=== PATIENT | female | born 1940 | race Caucasian/White ===

== ENCOUNTER 2016-10-09 20:39 | Inpatient (IN) | payer MEDICARE ==
[~2016-10-09] VITALS: Ht 160 cm; Wt 54.0 kg
[~2016-10-09 20:39] MED LIST: CLON-352 PO; FISH1000 PO; FURO20TA PO; LISI-357 PO; LORT5TAB PO; METO50CR OR; OMEP20TA OR; TRIL135C PO
[2016-10-09 20:49] VITALS: BP 110/63; PULSE 121; RESP 26; TEMP 98.6; O2SAT 93
[2016-10-09] MEDS ORDERED: SODIUM CHLOR 0.9% 1000 ML INJ 1,000 ML IV ONE (21:00)
[2016-10-09] MEDS ORDERED: BUPR100T4 PO (21:20)
[2016-10-09] MEDS ORDERED: HYDR-3535 PO (21:20)
[2016-10-09] MEDS ORDERED: LORA-373 PO (21:20)
[2016-10-09] MEDS ORDERED: METR500T10 PO (21:20)
[2016-10-09] MEDS ORDERED: CHOL1CAP2 PO (21:20)
[2016-10-09] MEDS ORDERED: PROM12.54 PO (21:20)
[2016-10-09] MEDS ORDERED: OMEP20TA PO (21:20)
[2016-10-09] MEDS ORDERED: CYAN1TAB24 PO (21:20)
[2016-10-09] MEDS ORDERED: LISI-519 PO (21:20)
[2016-10-09] MEDS ORDERED: DOXY100C PO (21:20)
[2016-10-09] MEDS ORDERED: METO50TA11 PO (21:20)
[2016-10-09] MEDS ORDERED: FURO20TA PO (21:20)
[2016-10-09 21:35] LABS: AUTOMATED NEUTROPHIL # 14.4 TH/MM3 (1.8-7.7); BASOPHIL # 0.2 TH/MM3 (0-0.2); BASOPHIL % 1.1 % (0.0-2.0); EOSINOPHIL # 0.1 TH/MM3 (0-0.4); EOSINOPHIL % 0.6 % (0.0-4.0); HEMATOCRIT 33.6 % (35.0-46.0); LYMPH % 13.7 % (9.0-44.0); LYMPHOCYTE # 2.5 TH/MM3 (1.0-4.8); MEAN CELL VOLUME 84.1 FL (80.0-100.0); MEAN CORPUSCULAR HEMOGLOBIN 28.8 PG (27.0-34.0); MEAN CORPUSCULAR HGB CONC 34.2 % (32.0-36.0); MONO % 5.6 % (0.0-8.0); PLATELET COUNT 259 TH/MM3 (150-450); RED BLOOD COUNT 3.99 MIL/MM3 (4.00-5.30); RED CELL DISTRIBUTION WIDTH 14.1 % (11.6-17.2); WHITE BLOOD COUNT 18.3 TH/MM3 (4.0-11.0)
--- NOTE | 2016-10-09 21:38 | PD ---
HPI Chief Complaint: Altered Mental Status Time Seen by Provider: 20:46 Travel History International Travel<30 days: No Contact w/Intl Traveler<30days: No Traveled to known affect area: No History of Present Illness HPI 76 year-old woman who presents to the emergency department brought in by her family. She is on hospice reportedly for "C. difficile "after she developed dehydration and required IV fluid hydration at home. Her family states however that she is not terminally ill and that they were told that she can use hospice for more resources at home. Family reports that in August she was really perfectly normal. She would walk independently, and do things on her own. She apparently at some kind of infection in her thumb with lymphangitis, received IV antibiotics, developed C. difficile. Since that time she's had trouble with nausea vomiting diarrhea and has had progressive decline in her functional status. At the beginning of this week, 5 days ago, they saw her primary physician for follow-up and placed her on hospice at that time. She's been getting IV fluids at home since then. Family reports that this morning and yesterday she was doing well, eating independently, and then later this morning when they came back she is been confused, unable to really speak, not moving, with worsening mental status. History Past Medical History Narrative Medical Diabetes Hypertension on hyperlipidemia Arthritis Hiatal hernia Menopausal: Yes Social History Alcohol Use: No Tobacco Use: No Allergies-Medications (Allergen,Severity, Reaction): Coded Allergies: Codeine (Verified Allergy, Severe, STOPS BREATHING, 10/09/16) Morphine (Verified Allergy, Mild, DISORIENTED, 10/09/16) Uncoded Allergies: ADHESIVE TAPE (Allergy, Severe, Rash, 03/27/06) Reported Meds & Prescriptions Reported Meds & Active Scripts Active Reported B12 (Cyanocobalamin) 1,000 Mcg Tab 500 PO DAILY Bupropion HCl 100 Mg Tab 150 Mg PO DAILY Metoprolol Succinate ER 24 HR (Metoprolol Succinate) 50 Mg Tab 50 Mg PO DAILY Doxycycline Hyclate 100 Mg Cap 100 Mg PO BID Furosemide 20 Mg Tab 20 Mg PO DAILY Lorazepam 0.5 Mg Tab 0.5 Mg PO Q2HR PRN Lisinopril 5 Mg Tab 5 Mg PO DAILY Promethazine (Promethazine HCl) 12.5 Mg Tab 25 Mg PO Q6H PRN Metronidazole 500 Mg Tab 500 Mg PO TID Omeprazole 20 Mg Tab 20 Mg PO DAILY Lortab (Hydrocodone-Acetaminophen) 10-325 Mg Tab 1 Tab PO Q6H PRN Fenofibric Acid Dr (Choline Fenofibrate DR) 135 mg Capdr 135 Mg PO DAILY Review of Systems Except as stated in HPI: all other systems reviewed are Neg Physical Exam Narrative GENERAL: Chronically ill-appearing 76 year-old woman, sluggishly responsive. SKIN: Warm and dry. Decreased skin turgor. HEAD: Atraumatic. Normocephalic. EYES: Pupils equal and round. No scleral icterus. No injection or drainage. ENT: No nasal bleeding or discharge. Mucous membranes pink and moist. NECK: Trachea midline. No JVD. CARDIOVASCULAR: Heart rate rapid and irregular. RESPIRATORY: No accessory muscle use. Clear to auscultation. Breath sounds equal bilaterally. GASTROINTESTINAL: Abdomen soft, non-tender, nondistended. Hepatic and splenic margins not palpable. MUSCULOSKELETAL: No obvious deformities. Decreased muscle bulk. NEUROLOGICAL: Awake, eyes open, not really interactive. We will look at you when you call her name. Will speak at times but is difficult to understand. Does not really follow commands. Moves all extremities. No facial asymmetry or obvious focal deficits. Data Data Last Documented VS Vital Signs Date Time Temp Pulse Resp B/P Pulse Ox O2 Delivery O2 Flow Rate FiO2 10/09/16 20:49 98.6 121 26 110/63 93 Room Air Orders Complete Blood Count With Diff (10/09/16 20:46) Comprehensive Metabolic Panel (10/09/16 20:46) Urinalysis - C+S If Indicated (10/09/16 20:46) Iv Access Insert/Monitor (10/09/16 20:46) Sodium Chlor 0.9% 1000 Ml Inj (Ns 1000 M (10/09/16 21:00) Chest, Single Ap (10/09/16 ) Ct Brain W/O Iv Contrast(Rout) (10/09/16 ) Electrocardiogram (10/09/16 ) Urine Culture (10/09/16 21:20) Isolation 20 (10/09/16 21:47) Admit Order (Ed Use Only) (10/09/16 ) Physician Name Changes (10/09/16 ) Labs Laboratory Tests Test 10/09/16 10/09/16 21:14 21:20 White Blood Count 18.3 TH/MM3 Red Blood Count 3.99 MIL/MM3 Hemoglobin 11.5 GM/DL Hematocrit 33.6 % Mean Corpuscular Volume 84.1 FL Mean Corpuscular Hemoglobin 28.8 PG Mean Corpuscular Hemoglobin 34.2 % Concent Red Cell Distribution Width 14.1 % Platelet Count 259 TH/MM3 Mean Platelet Volume 10.9 FL Neutrophils (%) (Auto) 79.0 % Lymphocytes (%) (Auto) 13.7 % Monocytes (%) (Auto) 5.6 % Eosinophils (%) (Auto) 0.6 % Basophils (%) (Auto) 1.1 % Neutrophils # (Auto) 14.4 TH/MM3 Lymphocytes # (Auto) 2.5 TH/MM3 Monocytes # (Auto) 1.0 TH/MM3 Eosinophils # (Auto) 0.1 TH/MM3 Basophils # (Auto) 0.2 TH/MM3 CBC Comment AUTO DIFF Differential Total Cells 100 Counted Neutrophils % (Manual) 88 % Band Neutrophils % 2 % Lymphocytes % 3 % Monocytes % 6 % Eosinophils % 1 % Neutrophils # (Manual) 16.5 TH/MM3 Differential Comment FINAL DIFF MANUAL Platelet Estimate NORMAL Platelet Morphology Comment NORMAL Sodium Level 143 MEQ/L Potassium Level 4.5 MEQ/L Chloride Level 112 MEQ/L Carbon Dioxide Level 17.5 MEQ/L Anion Gap 14 MEQ/L Blood Urea Nitrogen 85 MG/DL Creatinine 3.01 MG/DL Estimat Glomerular Filtration 15 ML/MIN Rate Random Glucose 88 MG/DL Calcium Level 7.1 MG/DL Protein Corrected Calcium 8.1 MG/DL Total Bilirubin 1.0 MG/DL Aspartate Amino Transf 51 U/L (AST/SGOT) Alanine Aminotransferase 29 U/L (ALT/SGPT) Alkaline Phosphatase 147 U/L Total Protein 5.3 GM/DL Albumin 2.5 GM/DL Urine Color YELLOW Urine Turbidity HAZY Urine pH 5.0 Urine Specific [place] 1.015 Urine Protein TRACE mg/dL Urine Glucose (UA) NEG mg/dL Urine Ketones NEG mg/dL Urine Occult Blood MOD Urine Nitrite NEG Urine Bilirubin NEG Urine Urobilinogen LESS THAN 2.0 MG/DL Urine Leukocyte Esterase LARGE Urine RBC 150 /hpf Urine WBC 80 /hpf Urine Squamous Epithelial <1 /hpf Cells Urine Bacteria OCC /hpf Microscopic Urinalysis Comment CATH-CULTURE IND MDM Medical Decision Making Medical Screen Exam Complete: Yes Emergency Medical Condition: Yes Interpretation(s) My review of EKG: A. fib, rate of 127, leftward axis, normal QRS, incomplete right bundle branch block, anterior precordial T-wave inversions and some anterolateral nonspecific ST depressions, no definite evidence of acute ischemia. LABS: CBC remarkable for leukocytosis. CMP remarkable for mildly low bicarbonate, elevated BUN and creatinine, UA with pyuria, hematuria Chest x-ray: Subsegmental airspace disease at the bases most characteristic of atelectasis. CT head: Negative. Differential Diagnosis Dehydration, infection, arrhythmia, electrolyte abnormalities, other Narrative Course Medical decision making INITIAL: 76 year-old woman with persistent dehydration, receiving IV fluids at home, presents with altered mental status, apparent dehydration, with tachycardia and A. fib. We'll check labs, IV fluids, CT head, chest x-ray, reassess. Diagnosis Primary Impression: Altered mental status Qualified Code: R41.0 - Delirium Additional Impressions: Sepsis Qualified Code: A41.9 - Sepsis, due to unspecified organism Dehydration Isaiah Heard MD Oct 09, 2016 21:37
[2016-10-09 21:46] LABS: BACTERIA, URINE OCC /hpf; BLOOD, URINE MOD (NEG); GLUCOSE,URINE NEG (NEG); KETONE, URINE NEG (NEG); NITRITE,URINE NEG (NEG); SQUAMOUS EPITHELIAL CELL URINE <1 /hpf (0-5); URINE COLOR YELLOW (YELLW/STRAW)
[2016-10-09 21:46] LABS: HEMO FLAGS AUTO DIFF
[2016-10-09 21:48] LABS: COMMENT (UR) CATH-CULTURE IND; CULTURE IF INDICATED CATH CULTURE IND
--- NOTE | 2016-10-09 22:09 | RADRPT ---
EXAM DATE/TIME: 10/09/2016 21:40 [facility] COMPARISON: No previous studies available for comparison. INDICATIONS : Altered mental status RADIATION DOSE: 69.15 CTDIvol (mGy) MEDICAL HISTORY : Hypertension. SURGICAL HISTORY : None. ENCOUNTER: Initial ACUITY: 1 day PAIN SCALE: Non-responsive LOCATION: Bilateral cranial TECHNIQUE: Multiple contiguous axial images were obtained of the head. Using automated exposure control and adj ustment of the mA and/or kV according to patient size, radiation dose was kept as low as reasonably a chievable to obtain optimal diagnostic quality images. FINDINGS: CEREBRUM: The ventricles are normal for age. No evidence of midline shift, mass lesion, hemorrhage or acute in farction. No extra-axial fluid collections are seen. POSTERIOR FOSSA: The cerebellum and brainstem are intact. The 4th ventricle is midline. The cerebellopontine angle i s unremarkable. EXTRACRANIAL: The visualized portion of the orbits is intact. SKULL: The calvaria is intact. No evidence of skull fracture. CONCLUSION: 1. No acute findings. Chronic white matter ischemic changes. Daniel Rob MD on October 09, 2016 at 22:06 Board Certified Radiologist. This report was verified electronically.
[2016-10-09 22:18] LABS: BANDS 2 % (0-6); EOSINOPHILS 1 % (0-4); NEUTROPHIL # MANUAL DIFF 16.5 TH/MM3 (1.8-7.7); POLYS (SEG NEUTROPHILS) 88 % (16-70); WBC DIFF SAMPLE 100
[2016-10-09 22:19] LABS: PLATELET ESTIMATE SMEAR NORMAL (NORMAL); PLATELET MORPHOLOGY NORMAL (NORMAL); SCAN/DIFF FINAL DIFF MANUAL
[2016-10-09 22:20] LABS: BICARBONATE 17.5 MEQ/L (21.0-32.0); CALCIUM-PROTEIN CORRECTED 8.1 MG/DL (8.5-10.1)
--- NOTE | 2016-10-09 22:31 | RADRPT ---
EXAM DATE/TIME: 10/09/2016 20:10 [facility] COMPARISON: No previous studies available for comparison. INDICATIONS : Short of breath. MEDICAL HISTORY : Chronic obstructive pulmonary disease. SURGICAL HISTORY : None. ENCOUNTER: Initial ACUITY: 1 day PAIN SCORE: 0/10 LOCATION: Bilateral chest FINDINGS: A single view of the chest demonstrates subsegmental airspace disease at the lung bases. No effusion. No pneumothorax. Previous right shoulder joint replacement. CONCLUSION: 1. Subsegmental airspace disease at the bases most characteristic of atelectasis. Film is rotated in position. Previous right shoulder replacement. Daniel Rob MD on October 09, 2016 at 22:28 Board Certified Radiologist. This report was verified electronically.
[2016-10-09 23:03] LABS: POTASSIUM 4.5 MEQ/L (3.5-5.1)
[2016-10-10] VITALS (7 sets, daily range): BP systolic 119–154; BP diastolic 53–87; PULSE 71–127; RESP 18–24; TEMP 97.6; O2SAT 84–99
[2016-10-10] MEDS ORDERED: PROMETHAZINE HCL 25 MG TAB PO PRN (00:15)
[2016-10-10] MEDS ORDERED: LORazepam 0.5 MG TAB PO PRN (00:15)
--- NOTE | 2016-10-10 00:38 | HHI.HP ---
HPI Service [facility] Hospitalists Primary Care Physician Unknown Admission Diagnosis altered mental status, dehydration Chief Complaint: 1 day altered mental status ,recent uti Travel History International Travel<30 Days: No Contact w/Intl Traveler <30 Da: No Traveled to Known Affected Are: No Sepsis Criteria SIRS Criteria (2 or more): Heart rate over 90, WBC > 92144, < 4000 or > 10% bands History of Present Illness HPI 76 year-old woman who presents to the emergency department brought in by her family. She is on hospice reportedly for "C. difficile "after she developed dehydration and required IV fluid hydration at home. Her family states however that she is not terminally ill and that they were told that she can use hospice for more resources at home. Family reports that in August she was really perfectly normal. She would walk independently, and do things on her own. She had fall and had operation to shoulder developed some kind of infection in her thumb with lymphangitis, received IV antibiotics, developed C. difficile. Since that time she's had trouble with nausea vomiting diarrhea and has had progressive decline in her functional status. At the beginning of this week, 5 days ago, they saw her primary physician for follow-up and placed her on hospice at that time. She's been getting IV fluids at home since then and was on medication for UTI Family reports that this morning and yesterday she was doing well, eating independently, and then later this morning when they came back she is been confused, unable to really speak, not moving, with worsening mental status. In er found to have sirs criteria with elevated heart rate and WBC count and urine infection with renal failure with cr at 3 unknown baseline . Patient appears to be atrial fib as well with ventricular response of 120, not sure if new or old. Review of Systems ROS Limitations: Altered Mental Status Past Family Social History Past Medical History hypertension,hyperlipidemia chronic arthritis pain with chronic back pain,GERD, C Diff times two,recent lymphangitis infection arm rt,anxiety depression Past Surgical History shoulder surgery fx Reported Medications lopressor 50,buproprion,b12.doxy,lasix 20,lorazepam lisinopril hydrocodone fibrate flagyl Allergies: Coded Allergies: Codeine (Verified Allergy, Severe, STOPS BREATHING, 10/09/16) Morphine (Verified Allergy, Mild, DISORIENTED, 10/09/16) Uncoded Allergies: ADHESIVE TAPE (Allergy, Severe, Rash, 03/27/06) Social History NS,ND Physical Exam Vital Signs Vital Signs Date Time Temp Pulse Resp B/P Pulse Ox O2 Delivery O2 Flow Rate FiO2 10/09/16 20:49 98.6 121 26 110/63 93 Room Air Physical Exam GENERAL: This is a well-nourished, well-developed patient, in no apparent distress. SKIN: No rashes, ecchymoses or lesions. Cool and dry. HEAD: Atraumatic. Normocephalic. No temporal or scalp tenderness. EYES: Pupils equal round and reactive. Extraocular motions intact. No scleral icterus. No injection or drainage. ENT: Nose without bleeding, purulent drainage or septal hematoma. Throat without erythema, tonsillar hypertrophy or exudate. Uvula midline. Airway patent. NECK: Trachea midline. No JVD or lymphadenopathy. Supple, nontender, no meningeal signs. CARDIOVASCULAR: Regular rate and rhythm without murmurs, gallops, or rubs. RESPIRATORY: Clear to auscultation. Breath sounds equal bilaterally. No wheezes , rales, or rhonchi. GASTROINTESTINAL: Abdomen soft, non-tender, nondistended. No hepato-splenomegaly , or palpable masses. No guarding. MUSCULOSKELETAL: Extremities without clubbing, cyanosis, or edema. No joint tenderness, effusion, or edema noted. No calf tenderness. Negative Homans sign bilaterally. NEUROLOGICAL: Awake and alert but confused able to respond to questions accurately. Cranial nerves II through XII intact. Motor and sensory grossly within normal limits. Five out of 5 muscle strength in all muscle groups. garbled speech. Laboratory Laboratory Tests Test 10/09/16 10/09/16 21:14 21:20 White Blood Count 18.3 Red Blood Count 3.99 Hemoglobin 11.5 Hematocrit 33.6 Mean Corpuscular Volume 84.1 Mean Corpuscular Hemoglobin 28.8 Mean Corpuscular Hemoglobin 34.2 Concent Red Cell Distribution Width 14.1 Platelet Count 259 Mean Platelet Volume 10.9 Neutrophils (%) (Auto) 79.0 Lymphocytes (%) (Auto) 13.7 Monocytes (%) (Auto) 5.6 Eosinophils (%) (Auto) 0.6 Basophils (%) (Auto) 1.1 Neutrophils # (Auto) 14.4 Lymphocytes # (Auto) 2.5 Monocytes # (Auto) 1.0 Eosinophils # (Auto) 0.1 Basophils # (Auto) 0.2 CBC Comment AUTO DIFF Differential Total Cells 100 Counted Neutrophils % (Manual) 88 Band Neutrophils % 2 Lymphocytes % 3 Monocytes % 6 Eosinophils % 1 Neutrophils # (Manual) 16.5 Differential Comment FINAL DIFF MANUAL Platelet Estimate NORMAL Platelet Morphology Comment NORMAL Sodium Level 143 Potassium Level 4.5 Chloride Level 112 Carbon Dioxide Level 17.5 Anion Gap 14 Blood Urea Nitrogen 85 Creatinine 3.01 Estimat Glomerular Filtration 15 Rate Random Glucose 88 Calcium Level 7.1 Protein Corrected Calcium 8.1 Total Bilirubin 1.0 Aspartate Amino Transf 51 (AST/SGOT) Alanine Aminotransferase 29 (ALT/SGPT) Alkaline Phosphatase 147 Total Protein 5.3 Albumin 2.5 Urine Color YELLOW Urine Turbidity HAZY Urine pH 5.0 Urine Specific [place] 1.015 Urine Protein TRACE Urine Glucose (UA) NEG Urine Ketones NEG Urine Occult Blood MOD Urine Nitrite NEG Urine Bilirubin NEG Urine Urobilinogen LESS THAN 2.0 Urine Leukocyte Esterase LARGE Urine RBC 150 Urine WBC 80 Urine Squamous Epithelial <1 Cells Urine Bacteria OCC Microscopic Urinalysis Comment CATH-CULTURE IND Date/Time Procedure Status Source Growth 10/09/16 21:20 Urine Culture Received Urine Catheterized Urine Pending Result Diagram: 10/09/16211310/09/162113 Imaging chest xray and CT head no acute findings Course in er started on IV fluids and will start antibiotics ,maxipem blood culture stool, for c diff Assessment and Plan Problem List: (1) Altered mental status Status: Acute Plan: approx 1 day duration seems like patient has had decline for several weeks Labs consistent with sepsis will get blood culture start Maxipim (2) Sepsis Status: Acute Plan: as above likely from urine (3) Renal failure Status: Acute Plan: probably component of dehydration hydrate and recheck labs if no real change in labs will need renal evaluation (4) Dehydration Status: Acute Plan: as above hydrate recheck labs (5) UTI (urinary tract infection) Status: Chronic Plan: has indwelling dooley and has been on outpatient antibiotics,dooley reason may be for incontinence Assessment and Plan further plan as case progresses and on recheck of labs will continue patient pain med has been on hydrocodone for a long time ,will hold lisinopril in view of renal failure and will get c diff check Code Status full Discussed Condition With family Physician Certification 2 Midnight Certification Type: Admission for Inpatient Services Order for Inpatient Services The services are ordered in accordance with Medicare regulations or non- Medicare payer requirements, as applicable. In the case of services not specified as inpatient-only, they are appropriately provided as inpatient services in accordance with the 2-midnight benchmark. Estimated LOS (days): 3 3 days is the estimated time the patient will need to remain in the hospital, assuming treatment plan goals are met and no additional complications. Post-Hospital Plan: Not yet determined Problem Qualifiers (1) Altered mental status: Qualified Code: R41.0 - Delirium (2) Sepsis: Qualified Code: A41.9 - Sepsis, due to unspecified organism Nba Bernardo MD Oct 10, 2016 00:38
[2016-10-10] MEDS ORDERED: NALOXONE HCL 0.4 MG/ML AMP IV PRN (00:45)
[2016-10-10] MEDS ORDERED: CEFEPIME INJ 1,000 MG in SODIUM CHLORIDE 0.9% INJ 100 ML IV SCH (00:45)
[2016-10-10] MEDS ORDERED: SODIUM CHLORIDE 0.9% FLUSH 5 ML FLUSH FLUSH PRN (00:45)
[2016-10-10] MEDS: CEFEPIME 2000 MG/NS 100 ML IV SCH ×2 (02:20)
[2016-10-10] MEDS: SODIUM CHLOR 0.9% 1000 ML INJ 1,000 ML IV SCH ×2 (02:20→11:47)
[2016-10-10] MEDS: ACETAMINOPHEN/HYDROcodone 325 MG/10 MG TAB PO PRN ×3 (04:31→23:22)
[2016-10-10] MEDS: PANTOPRAZOLE SOD 20 MG DELAYED RELEASE TAB PO SCH (08:08)
[2016-10-10] MEDS: SODIUM CHLORIDE 0.9% FLUSH 5 ML FLUSH FLUSH SCH ×2 (08:08→20:50)
[2016-10-10] MEDS ORDERED: LISINOPRIL 5 MG TAB PO SCH (09:00)
[2016-10-10] MEDS ORDERED: METOPROLOL SUCCINATE 50 MG EXTENDED RELEASE TAB PO SCH (09:00)
[2016-10-10] MEDS ORDERED: buPROPion HCL 150 MG SUSTAINED RELEASE TAB PO SCH (09:00)
[2016-10-10 09:43] LABS: AUTOMATED NEUTROPHIL # 11.2 TH/MM3 (1.8-7.7); BASOPHIL # 0.1 TH/MM3 (0-0.2); BASOPHIL % 0.3 % (0.0-2.0); EOSINOPHIL # 0.2 TH/MM3 (0-0.4); EOSINOPHIL % 1.2 % (0.0-4.0); HEMATOCRIT 32.3 % (35.0-46.0); HEMO FLAGS DIFF FINAL; LYMPH % 16.1 % (9.0-44.0); LYMPHOCYTE # 2.3 TH/MM3 (1.0-4.8); MEAN CELL VOLUME 86.4 FL (80.0-100.0); MEAN CORPUSCULAR HEMOGLOBIN 28.5 PG (27.0-34.0); MONO % 5.2 % (0.0-8.0); NEUT % 77.2 % (16.0-70.0); PLATELET COUNT 179 TH/MM3 (150-450); RED BLOOD COUNT 3.73 MIL/MM3 (4.00-5.30); RED CELL DISTRIBUTION WIDTH 14.4 % (11.6-17.2); WHITE BLOOD COUNT 14.5 TH/MM3 (4.0-11.0)
[2016-10-10 10:16] LABS: BICARBONATE 18.7 MEQ/L (21.0-32.0); CALCIUM-PROTEIN CORRECTED 7.5 MG/DL (8.5-10.1); TOTAL BILIRUBIN ADULT 0.9 MG/DL (0.2-1.0)
[2016-10-10 10:17] LABS: POTASSIUM 3.8 MEQ/L (3.5-5.1)
--- NOTE | 2016-10-10 10:26 | HHI.PR ---
Subjective Remarks Pts daughter is present and provides history as the pt is rather altered. Pts daughter states that back in 07/2016 the pt fell and fractured her right scapula and was placed in a sling The pt then developed a paronychia with reported lymphangitis and red streaking uo the right arm and was placed on IV antibiotics for 4 days while hospitalized at [facility] in early August 2016 Pt was reportedly on several rounds of antibiotics in August for this and then developed nausea/vomiting and diarrhea. She was seen by her PCP, Dr. Villalpando, on 10/01/16 and prescribed Flagyl TID x 14 days for presumed C. diff infection as the pt had previously had a C. diff infection last year. Pts daughter does not think that the pt was taking it as prescribed as currently she still has 31 pills left in that bottle of Flagyl which she brought to the hospital. The pt has not been eating or drinking well. Her diarrhea and vomiting reportedly subsided over the last 2-3 days. The pts last BM was two days ago and was reportedly pastey stool. The pts daughter states that the pt was reportedly recently found to have a UTI 6 days ago at an urgent care She was seen by her PCP 5 days ago and was placed on Hospice care with [facility] to help the pt and family get more help in the home as the pt had generally declined over the last 2 months Pt had a Alvarez catheter placed 3 days ago and the pts daughter states that the pt has not been out of bed in 5 days. Then yesterday evening the pts daughter went out to run errands and when she came home the pt was acutely confused and disoriented which was a significant change from her baseline mental status. Pt was found to have acute on chronic renal insufficiency, dehydration, and leukocytosis and was admitted for possible sepsis with AMS. Pt also noted to be in A. fib RVR at admission which is not a diagnosis that the daughter is aware of. Today pt is still quite altered Pt complains of pain in her mouth and has noted oral thrush. Objective Vitals Vital Signs Date Time Temp Pulse Resp B/P Pulse Ox O2 Delivery O2 Flow Rate FiO2 10/10/16 07:55 97.6 108 18 154/87 84 10/10/16 03:10 106 24 121/71 97 Room Air 10/09/16 20:49 98.6 121 26 110/63 93 Room Air Result Diagram: 10/10/16 0853 10/09/16 2114 Other Results Laboratory Tests Test 10/09/16 10/09/16 10/10/16 21:14 21:20 08:53 White Blood Count 18.3 TH/MM3 14.5 TH/MM3 Red Blood Count 3.99 MIL/MM3 3.73 MIL/MM3 Hemoglobin 11.5 GM/DL 10.6 GM/DL Hematocrit 33.6 % 32.3 % Mean Corpuscular Volume 84.1 FL 86.4 FL Mean Corpuscular Hemoglobin 28.8 PG 28.5 PG Mean Corpuscular Hemoglobin 34.2 % 33.0 % Concent Red Cell Distribution Width 14.1 % 14.4 % Platelet Count 259 TH/MM3 179 TH/MM3 Mean Platelet Volume 10.9 FL 10.3 FL Neutrophils (%) (Auto) 79.0 % 77.2 % Lymphocytes (%) (Auto) 13.7 % 16.1 % Monocytes (%) (Auto) 5.6 % 5.2 % Eosinophils (%) (Auto) 0.6 % 1.2 % Basophils (%) (Auto) 1.1 % 0.3 % Neutrophils # (Auto) 14.4 TH/MM3 11.2 TH/MM3 Lymphocytes # (Auto) 2.5 TH/MM3 2.3 TH/MM3 Monocytes # (Auto) 1.0 TH/MM3 0.8 TH/MM3 Eosinophils # (Auto) 0.1 TH/MM3 0.2 TH/MM3 Basophils # (Auto) 0.2 TH/MM3 0.1 TH/MM3 CBC Comment AUTO DIFF DIFF FINAL Differential Total Cells 100 Counted Neutrophils % (Manual) 88 % Band Neutrophils % 2 % Lymphocytes % 3 % Monocytes % 6 % Eosinophils % 1 % Neutrophils # (Manual) 16.5 TH/MM3 Differential Comment FINAL DIFF MANUAL Platelet Estimate NORMAL Platelet Morphology Comment NORMAL Sodium Level 143 MEQ/L Potassium Level 4.5 MEQ/L Chloride Level 112 MEQ/L Carbon Dioxide Level 17.5 MEQ/L Anion Gap 14 MEQ/L Blood Urea Nitrogen 85 MG/DL Creatinine 3.01 MG/DL Estimat Glomerular Filtration 15 ML/MIN Rate Random Glucose 88 MG/DL Calcium Level 7.1 MG/DL Protein Corrected Calcium 8.1 MG/DL Total Bilirubin 1.0 MG/DL Aspartate Amino Transf 51 U/L (AST/SGOT) Alanine Aminotransferase 29 U/L (ALT/SGPT) Alkaline Phosphatase 147 U/L Total Protein 5.3 GM/DL Albumin 2.5 GM/DL Urine Color YELLOW Urine Turbidity HAZY Urine pH 5.0 Urine Specific [place] 1.015 Urine Protein TRACE mg/dL Urine Glucose (UA) NEG mg/dL Urine Ketones NEG mg/dL Urine Occult Blood MOD Urine Nitrite NEG Urine Bilirubin NEG Urine Urobilinogen LESS THAN 2.0 MG/DL Urine Leukocyte Esterase LARGE Urine RBC 150 /hpf Urine WBC 80 /hpf Urine Squamous Epithelial <1 /hpf Cells Urine Bacteria OCC /hpf Microscopic Urinalysis Comment CATH-CULTURE IND Imaging Last Impressions Head CT 10/09/16 0000 Signed Impressions: Service Date/Time: October 21:40 - CONCLUSION: 1. No acute findings. Chronic white matter ischemic changes. Daniel Rob MD Chest X-Ray 10/09/16 0000 Signed Impressions: Service Date/Time: October 20:10 - CONCLUSION: 1. Subsegmental airspace disease at the bases most characteristic of atelectasis. Film is rotated in position. Previous right shoulder replacement. Daniel Rob MD Objective Remarks General: NAD, confused, agitated at times ENT: Oral thrush noted Chest: CTA Cardiac: Tachy, irregular Abd: +BS, soft ND/NT Ext: No edema A/P Problem List: (1) Altered mental status Status: Acute Plan: - May be multifactorial related to dehydration, acute on chronic renal insufficiency and possible sepsis with a possible UTI and previously suspected C. difficile infection. - Pt has been afebrile since admission and no reported outpt fevers - WBC count was 18 at admission - Pt started on Cefepime - Blood cultures are pending - Urine culture is pending. - IVF - Encourage oral intake, no swallowing concerns per family and nursing staff. - Pt had a Alvarez cath placed a few days ago, remove this. - PT evaluation - Stool for C. diff are ordered but pt has not had a BM in 2 days. - Pt admitted with reported A. fib RVR, HR in the 120-130 - Upon our review of her EKGs is appears that she had sinus tach with PACs/PVCs , pt currently in a sinus rhythm on exam - Pt is on Toprol XL 50mg po daily, continue - Telemetry - Monitor labs - Supportive care - DVT prophylaxis with Heparin (2) Sepsis Status: Acute Plan: - See above. (3) Renal failure Status: Acute Plan: - See above. - Awaiting repeat labs for today (4) Dehydration Status: Acute Plan: - See above (5) UTI (urinary tract infection) Status: Chronic Plan: - See above. (6) Diabetes mellitus type 2, diet-controlled Status: Chronic Plan: - Pt is normally diet controlled. - Repeat labs with a glucose of 69 this morning - Accu checks - Change IVF to D5 NS - Monitor (7) HTN (hypertension) Status: Chronic Assessment and Plan Patient examined. Assessment and plan formulated with Graciela Walters PA-C. I agree with the above. jesus. dehydration. uti. reevaluate for c.diff. encephalopathic and psychotic behavior my review of ekg shows more sinus tach with pac/pvc's. not afib. but will monitor. if symtoms persists after metabolic correction then consider mri brain to exclude cva. updated family. Problem Qualifiers (1) Altered mental status: Qualified Code: R41.0 - Delirium (2) Sepsis: Qualified Code: A41.9 - Sepsis, due to unspecified organism Graciela Walters Oct 10, 2016 10:26 Anil Negro MD Oct 10, 2016 12:30
[2016-10-10] MEDS: HEPARIN SODIUM - SQ 10,000 UNITS/ML VIAL SQ SCH ×2 (11:41→23:22)
[2016-10-10] MEDS: NYSTATIN SUSP 500,000 U/5 ML CUP SWISH-SWAL SCH ×4 (11:41→20:49)
[2016-10-10] MEDS ORDERED: HALOPERIDOL LACTATE 5 MG/ML AMP IV ONE (12:15)
[2016-10-10] MEDS: DEXT 5%-NACL 0.9% 1000 ML INJ 1,000 ML IV SCH (13:40)
[2016-10-10] MEDS: INSULIN ASPART SUPPLEMENTAL SCALE SQ SCH ×2 (16:00→20:50)
--- NOTE | 2016-10-10 16:10 | EKG ---
Date Performed: 10/09/2016 Time Performed: 21:32:57 PTAGE: 76 years EKG: ATRIAL FIBRILLATION WITH RAPID VENTRICULAR RESPONSE WITH ABERRANT CONDUCTION OR VENTRICULAR PREMATURE COMPLEXES LOW QRS VOLTAGE IN PRECORDIAL LEADS PATTERN CONSISTENT WITH PULMONARY DISEASE IN COMPLETE RIGHT BUNDLE BRANCH BLOCK LEFT ANTERIOR FASCICULAR BLOCK MODERATE ST DEPRESSION When compare d to previous tracing, the atrial fibrillation is new. Heart rate is now faster. ABNORMAL ECG PREVIOUS TRACING : 11/29/2010 10.27 DOCTOR: Anil Talavera Interpretating Date/Time 10/10/2016 16:08:47
--- NOTE | 2016-10-10 16:12 | EKG ---
Date Performed: 10/10/2016 Time Performed: 08:18:32 PTAGE: 76 years EKG: SINUS TACHYCARDIA WITH OCCASIONAL SUPRAVENTRICULAR PREMATURE COMPLEXES INCOMPLETE RIGHT BUN DLE BRANCH BLOCK LEFT ANTERIOR FASCICULAR BLOCK MODERATE ST DEPRESSION When compared to previous trac ing, rhythm has changed from Atrial fibrillation to Sinus rhythm . Heart rate is still rapid. ABNORMAL ECG PREVIOUS TRACING : 10/09/2016 21.32 DOCTOR: Anil Talavera Interpretating Date/Time 10/10/2016 16:10:50
[2016-10-10] MEDS ORDERED: HALOPERIDOL LACTATE 5 MG/ML AMP IV PRN (16:30)
[2016-10-10] MEDS: LORazepam 2 MG/ML VIAL IV PUSH PRN (18:00)
[2016-10-10] MEDS ORDERED: METOPROLOL TARTRATE 50 MG TAB PO SCH (21:00)
[2016-10-11] VITALS (7 sets, daily range): BP systolic 113–129; BP diastolic 57–77; PULSE 86–113; RESP 19–20; TEMP 95.6–98.7; O2SAT 95–98
[2016-10-11] MEDS: LORazepam 2 MG/ML VIAL IV PUSH PRN ×3 (01:24→15:21)
[2016-10-11] MEDS: DEXT 5%-NACL 0.9% 1000 ML INJ 1,000 ML IV SCH (01:24)
[2016-10-11] MEDS: CEFEPIME 2000 MG/NS 100 ML IV SCH ×4 (01:24→23:36)
[2016-10-11] MEDS: ACETAMINOPHEN/HYDROcodone 325 MG/10 MG TAB PO PRN ×2 (05:38→16:01)
[2016-10-11] MEDS: INSULIN ASPART SUPPLEMENTAL SCALE SQ SCH ×4 (06:07→21:00)
[2016-10-11 06:45] LABS: BASOPHIL # 0.1 TH/MM3 (0-0.2); BASOPHIL % 0.5 % (0.0-2.0); EOSINOPHIL # 0.5 TH/MM3 (0-0.4); EOSINOPHIL % 3.2 % (0.0-4.0); HEMATOCRIT 32.9 % (35.0-46.0); HEMO FLAGS DIFF FINAL; LYMPH % 21.1 % (9.0-44.0); MEAN CELL VOLUME 85.1 FL (80.0-100.0); MEAN CORPUSCULAR HEMOGLOBIN 28.7 PG (27.0-34.0); MEAN CORPUSCULAR HGB CONC 33.7 % (32.0-36.0); MONO % 5.9 % (0.0-8.0); NEUT % 69.3 % (16.0-70.0); PLATELET COUNT 201 TH/MM3 (150-450); RED BLOOD COUNT 3.87 MIL/MM3 (4.00-5.30); RED CELL DISTRIBUTION WIDTH 14.1 % (11.6-17.2); WHITE BLOOD COUNT 14.4 TH/MM3 (4.0-11.0)
[2016-10-11 07:19] LABS: BICARBONATE 16.5 MEQ/L (21.0-32.0); POTASSIUM 3.7 MEQ/L (3.5-5.1)
[2016-10-11 07:38] LABS: CALCIUM-PROTEIN CORRECTED 7.8 MG/DL (8.5-10.1)
[2016-10-11] MEDS ORDERED: DEXT 5%-NACL 0.45% 1000 ML INJ 1,000 ML IV SCH (07:45)
[2016-10-11] MEDS: MAGNESIUM SULFATE 1 GM PREMIX 100 ML IV SCH ×3 (08:13→11:22)
[2016-10-11] MEDS: METOPROLOL SUCCINATE 50 MG EXTENDED RELEASE TAB PO SCH (09:25)
[2016-10-11] MEDS: SODIUM CHLORIDE 0.9% FLUSH 5 ML FLUSH FLUSH SCH ×2 (09:25→21:14)
[2016-10-11] MEDS: NYSTATIN SUSP 500,000 U/5 ML CUP SWISH-SWAL SCH ×4 (09:25→21:14)
[2016-10-11] MEDS: CALCIUM CARBONATE 1.25 GM (CA 500 MG) TAB PO SCH ×2 (09:25→21:14)
[2016-10-11] MEDS: PANTOPRAZOLE SOD 20 MG DELAYED RELEASE TAB PO SCH (09:25)
[2016-10-11] MEDS: HEPARIN SODIUM - SQ 10,000 UNITS/ML VIAL SQ SCH ×2 (11:22→23:35)
[2016-10-11 12:24] LABS: C. DIFF EPI 027 PRESUMPTIVE NEGATIVE (NEGATIVE); C. DIFF TOXIN PCR NEGATIVE (NEGATIVE)
[2016-10-11] MEDS ORDERED: HALOPERIDOL LACTATE 5 MG/ML AMP IV PRN (15:00)
[2016-10-11] MEDS: DEXT 5%-NACL 0.45% 1000 ML INJ 1,000 ML IV SCH ×2 (15:21→21:55)
[2016-10-11 17:08] LABS: BLOOD, URINE SMALL (NEG); GLUCOSE,URINE NEG (NEG); KETONE, URINE NEG (NEG); MUCUS URINE FEW /lpf (OCC); NITRITE,URINE NEG (NEG); PH, URINE 5.5 (5.0-8.5); URINE COLOR YELLOW (YELLW/STRAW)
[2016-10-11 17:12] LABS: COMMENT (UR) CATH-CULT NOT IND; CULTURE IF INDICATED CATH CULTURE NOT IND
--- NOTE | 2016-10-11 18:07 | HHI.PR ---
Subjective Remarks agitated. confused. family present. Objective Vitals confused heart reg lung cta abds bladder fullness ext no edema Vital Signs Date Time Temp Pulse Resp B/P Pulse Ox O2 Delivery O2 Flow Rate FiO2 10/11/16 16:00 96.7 95 20 113/57 96 10/11/16 12:00 96.5 96 20 125/59 95 10/11/16 08:03 100 10/11/16 08:00 95.6 113 20 129/73 96 10/11/16 02:40 104 10/11/16 01:18 98.7 87 19 128/77 98 Result Diagram: 10/11/16 0558 10/11/16 0558 Imaging Last Impressions Head CT 10/09/16 0000 Signed Impressions: Service Date/Time: October 21:40 - CONCLUSION: 1. No acute findings. Chronic white matter ischemic changes. Daniel Rob MD Chest X-Ray 10/09/16 0000 Signed Impressions: Service Date/Time: October 20:10 - CONCLUSION: 1. Subsegmental airspace disease at the bases most characteristic of atelectasis. Film is rotated in position. Previous right shoulder replacement. Daniel Rob MD A/P Problem List: (1) Altered mental status Status: Acute Plan: - May be multifactorial related to dehydration, acute on chronic renal insufficiencyl. also would be concern for acute cva given afib on presentation. - Pt has been afebrile since admission and no reported outpt fevers - WBC count was 18 at admission - Pt started on Cefepime - Blood cultures are ngtd - Urine culture ngtd - stool neg for c.diff cont ivf to improve jesus and hypernatremia cont prn ativan and haldol replace dooley for urine retention discussed possible cva with family. unable to get mri at this time. cont supportive care awaiting transfer to med/surg bed. (2) Renal failure Status: Acute Plan: - See above. (3) Dehydration Status: Acute Plan: - See above (4) Diabetes mellitus type 2, diet-controlled Status: Chronic Plan: - Pt is normally diet controlled. (5) HTN (hypertension) Status: Chronic Problem Qualifiers (1) Altered mental status: Qualified Code: R41.0 - Delirium Anil Negro MD Oct 11, 2016 18:07
[2016-10-12] VITALS (8 sets, daily range): BP systolic 110–122; BP diastolic 51–93; PULSE 84–96; RESP 16–22; TEMP 97.2–98.5; O2SAT 94–98
[2016-10-12] MEDS: ACETAMINOPHEN/HYDROcodone 325 MG/10 MG TAB PO PRN ×2 (04:26→14:23)
[2016-10-12] MEDS: LORazepam 2 MG/ML VIAL IV PUSH PRN ×3 (04:26→19:39)
[2016-10-12] MEDS: INSULIN ASPART SUPPLEMENTAL SCALE SQ SCH ×4 (06:55→20:11)
[2016-10-12] MEDS: NYSTATIN SUSP 500,000 U/5 ML CUP SWISH-SWAL SCH ×4 (09:10→19:39)
[2016-10-12] MEDS: METOPROLOL SUCCINATE 50 MG EXTENDED RELEASE TAB PO SCH (09:10)
[2016-10-12] MEDS: CALCIUM CARBONATE 1.25 GM (CA 500 MG) TAB PO SCH ×2 (09:10→19:40)
[2016-10-12] MEDS: SODIUM CHLORIDE 0.9% FLUSH 5 ML FLUSH FLUSH SCH ×2 (09:10→19:40)
[2016-10-12] MEDS: PANTOPRAZOLE SOD 20 MG DELAYED RELEASE TAB PO SCH (09:10)
[2016-10-12 10:26] LABS: AUTOMATED NEUTROPHIL # 10.5 TH/MM3 (1.8-7.7); BASOPHIL % 0.3 % (0.0-2.0); EOSINOPHIL # 0.5 TH/MM3 (0-0.4); EOSINOPHIL % 3.7 % (0.0-4.0); HEMATOCRIT 35.1 % (35.0-46.0); HEMO FLAGS DIFF FINAL; LYMPH % 14.6 % (9.0-44.0); MEAN CELL VOLUME 86.3 FL (80.0-100.0); MEAN CORPUSCULAR HEMOGLOBIN 28.6 PG (27.0-34.0); MEAN CORPUSCULAR HGB CONC 33.2 % (32.0-36.0); MONO % 5.7 % (0.0-8.0); NEUT % 75.7 % (16.0-70.0); PLATELET COUNT 203 TH/MM3 (150-450); RED BLOOD COUNT 4.07 MIL/MM3 (4.00-5.30); RED CELL DISTRIBUTION WIDTH 14.6 % (11.6-17.2); WHITE BLOOD COUNT 13.9 TH/MM3 (4.0-11.0)
[2016-10-12 10:46] LABS: BICARBONATE 20.2 MEQ/L (21.0-32.0); POTASSIUM 3.7 MEQ/L (3.5-5.1)
[2016-10-12] MEDS: DEXT 5%-NACL 0.45% 1000 ML INJ 1,000 ML IV SCH ×3 (11:20→23:14)
[2016-10-12] MEDS: HEPARIN SODIUM - SQ 10,000 UNITS/ML VIAL SQ SCH ×2 (11:20→23:13)
--- NOTE | 2016-10-12 14:31 | HHI.PR ---
Subjective Remarks pt now talking and much more oriented. family present and agree she is improving. Objective Vitals follows commands oriented currently not agitated heart reg lung cta abd s/nt/nabs ext no edema ?mild left cheek drooping. Vital Signs Date Time Temp Pulse Resp B/P Pulse Ox O2 Delivery O2 Flow Rate FiO2 10/12/16 12:21 97.2 94 22 122/93 97 10/12/16 08:33 84 10/12/16 07:46 97.4 88 20 121/67 94 10/12/16 04:46 97.9 90 16 110/51 10/11/16 20:00 86 10/11/16 16:00 96.7 95 20 113/57 96 10/11/16 10/11/16 10/12/16 15:00 23:00 07:00 Intake Total 1340 ml Output Total 950 ml 1000 ml Balance -950 ml 340 ml Intake Oral 240 ml IV Total 1100 ml Output Urine Total 950 ml 1000 ml Result Diagram: 10/12/16 1001 10/12/16 1001 Imaging Last Impressions Head CT 10/09/16 0000 Signed Impressions: Service Date/Time: October 21:40 - CONCLUSION: 1. No acute findings. Chronic white matter ischemic changes. Daniel Rob MD Chest X-Ray 10/09/16 0000 Signed Impressions: Service Date/Time: October 20:10 - CONCLUSION: 1. Subsegmental airspace disease at the bases most characteristic of atelectasis. Film is rotated in position. Previous right shoulder replacement. Daniel Rob MD A/P Problem List: (1) Altered mental status Status: Acute Plan: - May be multifactorial related to dehydration, acute on chronic renal insufficiency. also would be concern for acute cva given afib on presentation. - Pt has been afebrile since admission and no reported outpt fevers - WBC count was 18 at admission - Pt started on Cefepime - Blood cultures are ngtd - Urine culture ngtd - stool neg for c.diff ---Today she is more oriented. follows commands and family agrees. She may need mri prior to d/c to r/o cva. cont ivf but lower rate. recheck bmp cont prn ativan and haldol dooley for urine retention discussed possible cva with family. cont supportive care awaiting transfer to med/surg bed. PT dvt prophylaxis (2) Renal failure Status: Acute Plan: - See above. (3) Dehydration Status: Acute Plan: - See above (4) Diabetes mellitus type 2, diet-controlled Status: Chronic Plan: - Pt is normally diet controlled. (5) HTN (hypertension) Status: Chronic Problem Qualifiers (1) Altered mental status: Qualified Code: R41.0 - Delirium Anil Negro MD Oct 12, 2016 14:31
[2016-10-13] MEDS: ACETAMINOPHEN/HYDROcodone 325 MG/10 MG TAB PO PRN ×2 (00:50→09:21)
[2016-10-13] MEDS: LORazepam 2 MG/ML VIAL IV PUSH PRN (00:50)
[2016-10-13] MEDS: CEFEPIME 2000 MG/NS 100 ML IV SCH ×2 (00:52)
[2016-10-13 06:11] LABS: AUTOMATED NEUTROPHIL # 7.6 TH/MM3 (1.8-7.7); BASOPHIL % 0.3 % (0.0-2.0); EOSINOPHIL # 0.4 TH/MM3 (0-0.4); EOSINOPHIL % 3.8 % (0.0-4.0); HEMATOCRIT 27.7 % (35.0-46.0); HEMO FLAGS DIFF FINAL; LYMPH % 19.6 % (9.0-44.0); LYMPHOCYTE # 2.2 TH/MM3 (1.0-4.8); MEAN CELL VOLUME 85.9 FL (80.0-100.0); MEAN CORPUSCULAR HEMOGLOBIN 29.3 PG (27.0-34.0); MEAN CORPUSCULAR HGB CONC 34.2 % (32.0-36.0); MONO % 7.4 % (0.0-8.0); NEUT % 68.9 % (16.0-70.0); PLATELET COUNT 162 TH/MM3 (150-450); RED BLOOD COUNT 3.22 MIL/MM3 (4.00-5.30); RED CELL DISTRIBUTION WIDTH 14.6 % (11.6-17.2); WHITE BLOOD COUNT 11.1 TH/MM3 (4.0-11.0)
[2016-10-13] MEDS: INSULIN ASPART SUPPLEMENTAL SCALE SQ SCH ×4 (06:46→20:12)
[2016-10-13 06:50] LABS: BICARBONATE 19.8 MEQ/L (21.0-32.0); MAGNESIUM 1.6 MG/DL (1.5-2.5)
[2016-10-13 07:00] VITALS: PULSE 99
[2016-10-13 07:10] LABS: CALCIUM-PROTEIN CORRECTED 8.7 MG/DL (8.5-10.1)
[2016-10-13] MEDS: PANTOPRAZOLE SOD 20 MG DELAYED RELEASE TAB PO SCH (09:18)
[2016-10-13] MEDS: HEPARIN SODIUM - SQ 10,000 UNITS/ML VIAL SQ SCH ×2 (09:18→23:02)
[2016-10-13] MEDS: SODIUM CHLORIDE 0.9% FLUSH 5 ML FLUSH FLUSH SCH ×2 (09:18→23:02)
[2016-10-13] MEDS: METOPROLOL SUCCINATE 50 MG EXTENDED RELEASE TAB PO SCH (09:18)
[2016-10-13] MEDS: CALCIUM CARBONATE 1.25 GM (CA 500 MG) TAB PO SCH ×2 (09:18→23:02)
[2016-10-13] MEDS ORDERED: POTASSIUM CHLORIDE 20 MEQ CONTROLLED RELEASE TAB PO ONE (11:00)
[2016-10-13] MEDS: NYSTATIN SUSP 500,000 U/5 ML CUP SWISH-SWAL SCH ×4 (11:44→23:02)
--- NOTE | 2016-10-13 11:53 | HHI.PR ---
Subjective Remarks Pt is alert and more oriented since yesterday She is still not eating or drinking much Denies any pain Pt with Alvarez cath in place for retention Afebrile Objective Vitals Vital Signs Date Time Temp Pulse Resp B/P Pulse Ox O2 Delivery O2 Flow Rate FiO2 10/12/16 23:26 98.1 91 16 116/65 97 10/12/16 21:19 98.5 93 21 122/67 98 10/12/16 21:00 96 10/12/16 15:43 97.9 90 22 118/65 96 10/12/16 12:21 97.2 94 22 122/93 97 10/12/16 10/12/16 10/13/16 15:00 23:00 07:00 Intake Total 990 ml 1740 ml Output Total 550 ml Balance 440 ml 1740 ml Intake Oral 680 ml IV Total 310 ml 1740 ml Output Urine Total 550 ml # Voids 1 # Bowel Movements 0 Result Diagram: 10/13/16 0508 10/13/16 0508 Other Results Laboratory Tests Test 10/11/16 10/12/16 10/13/16 15:32 10:01 05:08 Urine Color YELLOW Urine Turbidity CLEAR Urine pH 5.5 Urine Specific Era 1.014 Urine Protein NEG mg/dL Urine Glucose (UA) NEG mg/dL Urine Ketones NEG mg/dL Urine Occult Blood SMALL Urine Nitrite NEG Urine Bilirubin NEG Urine Urobilinogen LESS THAN 2.0 MG/DL Urine Leukocyte Esterase NEG Urine RBC 14 /hpf Urine WBC 1 /hpf Urine Mucus FEW /lpf Urine Yeast (Budding) RARE Microscopic Urinalysis Comment CATH-CULT NOT IND White Blood Count 13.9 TH/MM3 11.1 TH/MM3 Red Blood Count 4.07 MIL/MM3 3.22 MIL/MM3 Hemoglobin 11.6 GM/DL 9.5 GM/DL Hematocrit 35.1 % 27.7 % Mean Corpuscular Volume 86.3 FL 85.9 FL Mean Corpuscular Hemoglobin 28.6 PG 29.3 PG Mean Corpuscular Hemoglobin 33.2 % 34.2 % Concent Red Cell Distribution Width 14.6 % 14.6 % Platelet Count 203 TH/MM3 162 TH/MM3 Mean Platelet Volume 9.9 FL 10.2 FL Neutrophils (%) (Auto) 75.7 % 68.9 % Lymphocytes (%) (Auto) 14.6 % 19.6 % Monocytes (%) (Auto) 5.7 % 7.4 % Eosinophils (%) (Auto) 3.7 % 3.8 % Basophils (%) (Auto) 0.3 % 0.3 % Neutrophils # (Auto) 10.5 TH/MM3 7.6 TH/MM3 Lymphocytes # (Auto) 2.0 TH/MM3 2.2 TH/MM3 Monocytes # (Auto) 0.8 TH/MM3 0.8 TH/MM3 Eosinophils # (Auto) 0.5 TH/MM3 0.4 TH/MM3 Basophils # (Auto) 0.0 TH/MM3 0.0 TH/MM3 CBC Comment DIFF FINAL DIFF FINAL Differential Comment Sodium Level 148 MEQ/L 148 MEQ/L Potassium Level 3.7 MEQ/L 3.0 MEQ/L Chloride Level 119 MEQ/L 119 MEQ/L Carbon Dioxide Level 20.2 MEQ/L 19.8 MEQ/L Anion Gap 9 MEQ/L 9 MEQ/L Blood Urea Nitrogen 32 MG/DL 24 MG/DL Creatinine 1.36 MG/DL 1.28 MG/DL Estimat Glomerular Filtration 38 ML/MIN 40 ML/MIN Rate Random Glucose 96 MG/DL 88 MG/DL Calcium Level 7.5 MG/DL 7.1 MG/DL Protein Corrected Calcium 8.7 MG/DL Magnesium Level 1.6 MG/DL Total Protein 4.2 GM/DL Imaging Last Impressions Head CT 10/09/16 0000 Signed Impressions: Service Date/Time: October 21:40 - CONCLUSION: 1. No acute findings. Chronic white matter ischemic changes. Daniel Rob MD Chest X-Ray 10/09/16 0000 Signed Impressions: Service Date/Time: October 20:10 - CONCLUSION: 1. Subsegmental airspace disease at the bases most characteristic of atelectasis. Film is rotated in position. Previous right shoulder replacement. Daniel Rob MD Objective Remarks General: NAD, Awake and alert Chest: CTA Cardiac: Regular Abd: +BS, soft ND/NT Ext: No edema A/P Problem List: (1) Altered mental status Status: Acute Plan: - May be multifactorial related to dehydration, acute on chronic renal insufficiency. also would be concern for acute cva given afib on presentation. - Pt has been afebrile since admission and no reported outpt fevers - WBC count was 18 at admission - Pt started on Cefepime at admission - Blood cultures are ngtd - Urine culture ngtd - Stool neg for c.diff - Yesterday pt was more oriented and following commands and family agrees. - Order MRI Brain today to r/o CVA. - Pts H/H is decreased today, may be dilutional related to IVF, monitor - Encourage oral intake. - Stop IVF when tolerating oral diet well. - Monitor BMP - Cont prn Ativan and Haldol - Alvarez was replaced for urine retention - Cont supportive care - Awaiting transfer to med/surg bed. - PT - DVT prophylaxis (2) Renal failure Status: Acute Plan: - See above. (3) Dehydration Status: Acute Plan: - See above (4) Diabetes mellitus type 2, diet-controlled Status: Chronic Plan: - Pt is normally diet controlled. (5) HTN (hypertension) Status: Chronic Assessment and Plan Patient examined. Assessment and plan formulated with Graciela Walters PA-C. I agree with the above. Problem Qualifiers (1) Altered mental status: Qualified Code: R41.0 - Delirium (2) HTN (hypertension): Qualified Code: I10 - Essential hypertension Graciela Walters Oct 13, 2016 11:53 Santosh Araujo DO Oct 14, 2016 14:12
[2016-10-13 12:06] VITALS: BP 143/72; PULSE 83; RESP 18; O2SAT 95
[2016-10-13] MEDS: D5-NS + KCL 20 MEQ INJ 1,000 ML IV SCH (12:47)
[2016-10-13 16:29] VITALS: BP 127/60; PULSE 90; RESP 18; O2SAT 95
--- NOTE | 2016-10-13 18:27 | RADRPT ---
EXAM DATE/TIME: 10/13/2016 17:29 [facility] COMPARISON: CT BRAIN W/O CONTRAST, October 09, 2016, 21:40. INDICATIONS : CVA. MEDICAL HISTORY : Hypertension. Diabetes mellitus type 2. SURGICAL HISTORY : Total knee replacement, right. Cholecystectomy. Rt shoulder replacement. ENCOUNTER: Initial ACUITY: 2 day PAIN SCORE: 0/10 LOCATION: head TECHNIQUE: Multiplanar, multisequence MRI of the brain was performed without contrast. FINDINGS: CEREBRUM: The ventricles and cortical sulci are widened. No evidence of midline shift, mass lesion, hemorrhage or acute infarction. No extraaxial fluid collections are seen. The pituitary gland and suprasellar cistern are normal in configuration. Dilated perivascular spaces are seen in the basal ganglia regio ns. WHITE MATTER: There is widespread increased signal seen throughout the cerebral white matter. POSTERIOR FOSSA: The cerebellum and brainstem are intact. The 4th ventricle is midline. The cerebellopontine angle is unremarkable. The cerebellar tonsils are normal in position. DIFFUSION IMAGING: No focal areas of restricted diffusion are seen. No evidence of acute infarction. EXTRACRANIAL: The visualized portions of the orbits and paranasal sinuses are unremarkable. CONCLUSION: 1. No acute abnormality seen. 2. Age-related atrophy. 3. Suspected widespread demyelination likely secondary to small vessel ischemic change. Ernesto Gasca MD on October 13, 2016 at 18:22 Board Certified Radiologist. This report was verified electronically.
[2016-10-13 20:16] VITALS: BP 127/60; PULSE 94; RESP 20; O2SAT 96
[2016-10-14 01:23] VITALS: BP 122/73; PULSE 84; RESP 20; O2SAT 95
[2016-10-14 05:13] VITALS: BP 121/66; PULSE 84; RESP 18; TEMP 97.6; O2SAT 97
[2016-10-14 06:09] LABS: AUTOMATED NEUTROPHIL # 7.2 TH/MM3 (1.8-7.7); BASOPHIL % 0.5 % (0.0-2.0); EOSINOPHIL # 0.3 TH/MM3 (0-0.4); EOSINOPHIL % 3.3 % (0.0-4.0); HEMATOCRIT 28.4 % (35.0-46.0); HEMO FLAGS DIFF FINAL; LYMPH % 18.5 % (9.0-44.0); LYMPHOCYTE # 1.9 TH/MM3 (1.0-4.8); MEAN CELL VOLUME 85.3 FL (80.0-100.0); MEAN CORPUSCULAR HEMOGLOBIN 29.7 PG (27.0-34.0); MEAN CORPUSCULAR HGB CONC 34.8 % (32.0-36.0); MONO % 7.4 % (0.0-8.0); NEUT % 70.3 % (16.0-70.0); PLATELET COUNT 174 TH/MM3 (150-450); RED BLOOD COUNT 3.33 MIL/MM3 (4.00-5.30); RED CELL DISTRIBUTION WIDTH 14.7 % (11.6-17.2); WHITE BLOOD COUNT 10.3 TH/MM3 (4.0-11.0)
[2016-10-14] MEDS: INSULIN ASPART SUPPLEMENTAL SCALE SQ SCH ×4 (06:27→20:31)
[2016-10-14 06:31] LABS: BICARBONATE 20.3 MEQ/L (21.0-32.0); MAGNESIUM 1.4 MG/DL (1.5-2.5); POTASSIUM 3.5 MEQ/L (3.5-5.1)
[2016-10-14 06:47] LABS: CALCIUM-PROTEIN CORRECTED 8.4 MG/DL (8.5-10.1)
[2016-10-14 07:00] VITALS: PULSE 105
[2016-10-14] MEDS: NYSTATIN SUSP 500,000 U/5 ML CUP SWISH-SWAL SCH ×4 (07:51→21:00)
[2016-10-14] MEDS: SODIUM CHLORIDE 0.9% FLUSH 5 ML FLUSH FLUSH SCH ×2 (07:52→21:19)
[2016-10-14] MEDS: CALCIUM CARBONATE 1.25 GM (CA 500 MG) TAB PO SCH ×2 (07:52→21:19)
[2016-10-14] MEDS: PANTOPRAZOLE SOD 20 MG DELAYED RELEASE TAB PO SCH (07:52)
[2016-10-14] MEDS: METOPROLOL SUCCINATE 50 MG EXTENDED RELEASE TAB PO SCH (07:52)
[2016-10-14] MEDS: D5-NS + KCL 20 MEQ INJ 1,000 ML IV SCH (07:53)
[2016-10-14 08:00] VITALS: BP_SYST 110; BP_SYST 134; BP_DIAS 56; BP_DIAS 63; PULSE 100; PULSE 65; RESP 18; TEMP 97.5; O2SAT 97; O2SAT 98
[2016-10-14 12:00] VITALS: BP 124/56; PULSE 93; RESP 16; TEMP 97.4; O2SAT 98
[2016-10-14] MEDS: HEPARIN SODIUM - SQ 10,000 UNITS/ML VIAL SQ SCH ×2 (12:07→21:19)
--- NOTE | 2016-10-14 14:12 | HHI.PR ---
Subjective Remarks No new complaints. Pt was able to tolerate PO breakfast and is currently eating lunch. Objective Vitals Vital Signs Date Time Temp Pulse Resp B/P Pulse Ox O2 Delivery O2 Flow Rate FiO2 10/14/16 12:00 97.4 93 16 124/56 98 10/14/16 08:00 97.5 100 18 134/63 97 10/14/16 07:00 105 10/14/16 05:13 97.6 84 18 121/66 97 10/14/16 01:23 84 20 122/73 95 10/13/16 20:16 94 20 127/60 96 10/13/16 16:29 90 18 127/60 95 10/13/16 10/13/16 10/14/16 15:00 23:00 07:00 Intake Total 1650 ml Output Total 1100 ml Balance 550 ml Intake Oral 750 ml IV Total 900 ml Output Urine Total 1100 ml Result Diagram: 10/14/16 0525 10/14/16 0525 Imaging Last Impressions Brain MRI 10/13/16 0000 Signed Impressions: Service Date/Time: Thursday, October 13, 2016 17:29 - CONCLUSION: 1. No acute abnormality seen. 2. Age-related atrophy. 3. Suspected widespread demyelination likely secondary to small vessel ischemic change. Ernesto Gasca MD Head CT 10/09/16 0000 Signed Impressions: Service Date/Time: October 21:40 - CONCLUSION: 1. No acute findings. Chronic white matter ischemic changes. Daniel Rob MD Chest X-Ray 10/09/16 0000 Signed Impressions: Service Date/Time: October 20:10 - CONCLUSION: 1. Subsegmental airspace disease at the bases most characteristic of atelectasis. Film is rotated in position. Previous right shoulder replacement. Daniel Rob MD Objective Remarks General: NAD, Awake and alert Chest: CTA Cardiac: Regular Abd: +BS, soft ND/NT Ext: No edema A/P Problem List: (1) Altered mental status Status: Acute Plan: - May be multifactorial related to dehydration, acute on chronic renal insufficiency. also would be concern for acute cva given afib on presentation. - Pt has been afebrile since admission and no reported outpt fevers - WBC count was 18 at admission, now 10.3 (10/14/16) - afebrile - stop Cefepime (10/10 - 10/13/16) - Blood cultures (10/10/16) --> NO growth at 4d - Urine culture ngtd - Stool neg for c.diff - MRI brain (10/13/16) --> Suspected widespread demyelination likely secondary to small vessel ischemic change - Cont prn Ativan and Haldol - Alvarez was replaced for urine retention - Cont supportive care - PT - I met with the pt, sons, daughter, and [id number] - pt/family want continued aggressive care - continue full code - once hypernatremia has corrected, anticipate d/c to SNF for strengthening - DVT prophylaxis (2) Renal failure Status: Acute Plan: - See above. (3) Diabetes mellitus type 2, diet-controlled Status: Chronic Plan: - Pt is normally diet controlled. (4) HTN (hypertension) Status: Chronic Plan: - metoprolol Problem Qualifiers (1) Altered mental status: Qualified Code: R41.0 - Delirium (2) HTN (hypertension): Qualified Code: I10 - Essential hypertension Santosh Araujo DO Oct 14, 2016 14:11
[2016-10-14] MEDS: 1/2 NS + KCL 20 MEQ INJ 1,000 ML IV SCH (14:48)
[2016-10-14 16:00] VITALS: BP 138/63; PULSE 100; RESP 18; TEMP 97.8; O2SAT 97; O2SAT 98
[2016-10-15 04:30] VITALS: BP 126/62; PULSE 89; RESP 18; TEMP 98.2; O2SAT 97
[2016-10-15] MEDS: 1/2 NS + KCL 20 MEQ INJ 1,000 ML IV SCH (04:45)
[2016-10-15 06:12] LABS: AUTOMATED NEUTROPHIL # 9.4 TH/MM3 (1.8-7.7); BASOPHIL # 0.1 TH/MM3 (0-0.2); BASOPHIL % 0.4 % (0.0-2.0); EOSINOPHIL # 0.3 TH/MM3 (0-0.4); EOSINOPHIL % 2.5 % (0.0-4.0); LYMPH % 16.6 % (9.0-44.0); LYMPHOCYTE # 2.1 TH/MM3 (1.0-4.8); MEAN CELL VOLUME 86.8 FL (80.0-100.0); MEAN CORPUSCULAR HEMOGLOBIN 28.7 PG (27.0-34.0); MONO % 5.7 % (0.0-8.0); NEUT % 74.8 % (16.0-70.0); PLATELET COUNT 173 TH/MM3 (150-450); RED BLOOD COUNT 3.23 MIL/MM3 (4.00-5.30); RED CELL DISTRIBUTION WIDTH 14.5 % (11.6-17.2); WHITE BLOOD COUNT 12.5 TH/MM3 (4.0-11.0)
[2016-10-15 06:15] VITALS: PULSE 108
[2016-10-15] MEDS: INSULIN ASPART SUPPLEMENTAL SCALE SQ SCH ×4 (06:19→21:00)
[2016-10-15 06:20] LABS: HEMO FLAGS AUTO DIFF
[2016-10-15 06:45] LABS: MAGNESIUM 1.1 MG/DL (1.5-2.5); POTASSIUM 4.1 MEQ/L (3.5-5.1)
[2016-10-15 07:04] LABS: CALCIUM-PROTEIN CORRECTED 8.7 MG/DL (8.5-10.1)
[2016-10-15 07:50] VITALS: BP 115/64; PULSE 73; RESP 16; TEMP 96.5; O2SAT 100
--- NOTE | 2016-10-15 09:13 | HHI.PR ---
Subjective Remarks No new complaints. Pt is eating better, appetite is improving. She had two soft BMs this morning. Denies any nausea or vomiting. Objective Vitals Vital Signs Date Time Temp Pulse Resp B/P Pulse Ox O2 Delivery O2 Flow Rate FiO2 10/15/16 07:50 96.5 73 16 115/64 100 10/15/16 06:15 108 10/15/16 04:30 98.2 89 18 126/62 97 10/14/16 16:00 97.8 100 18 138/63 97 10/14/16 16:00 97.8 100 18 98 10/14/16 12:00 97.4 93 16 124/56 98 10/14/16 10/14/16 10/15/16 15:00 23:00 07:00 Intake Total 1550 ml Output Total 1100 ml Balance 450 ml Intake Oral 750 ml IV Total 800 ml Output Urine Total 1100 ml # Voids 1 # Bowel Movements 2 Result Diagram: 10/15/16 0526 10/15/16 0528 Other Results Laboratory Tests Test 10/14/16 10/15/16 10/15/16 05:25 05:26 05:28 White Blood Count 10.3 TH/MM3 12.5 TH/MM3 Red Blood Count 3.33 MIL/MM3 3.23 MIL/MM3 Hemoglobin 9.9 GM/DL 9.3 GM/DL Hematocrit 28.4 % 28.0 % Mean Corpuscular Volume 85.3 FL 86.8 FL Mean Corpuscular Hemoglobin 29.7 PG 28.7 PG Mean Corpuscular Hemoglobin 34.8 % 33.0 % Concent Red Cell Distribution Width 14.7 % 14.5 % Platelet Count 174 TH/MM3 173 TH/MM3 Mean Platelet Volume 9.9 FL 9.7 FL Neutrophils (%) (Auto) 70.3 % 74.8 % Lymphocytes (%) (Auto) 18.5 % 16.6 % Monocytes (%) (Auto) 7.4 % 5.7 % Eosinophils (%) (Auto) 3.3 % 2.5 % Basophils (%) (Auto) 0.5 % 0.4 % Neutrophils # (Auto) 7.2 TH/MM3 9.4 TH/MM3 Lymphocytes # (Auto) 1.9 TH/MM3 2.1 TH/MM3 Monocytes # (Auto) 0.8 TH/MM3 0.7 TH/MM3 Eosinophils # (Auto) 0.3 TH/MM3 0.3 TH/MM3 Basophils # (Auto) 0.0 TH/MM3 0.1 TH/MM3 CBC Comment DIFF FINAL AUTO DIFF Differential Comment Sodium Level 149 MEQ/L 149 MEQ/L Potassium Level 3.5 MEQ/L 4.1 MEQ/L Chloride Level 121 MEQ/L 120 MEQ/L Carbon Dioxide Level 20.3 MEQ/L 20.0 MEQ/L Anion Gap 8 MEQ/L 9 MEQ/L Blood Urea Nitrogen 14 MG/DL 11 MG/DL Creatinine 0.94 MG/DL 0.79 MG/DL Estimat Glomerular Filtration 58 ML/MIN 70 ML/MIN Rate Random Glucose 82 MG/DL 66 MG/DL Calcium Level 7.0 MG/DL 7.2 MG/DL Protein Corrected Calcium 8.4 MG/DL 8.7 MG/DL Magnesium Level 1.4 MG/DL 1.1 MG/DL Total Protein 4.5 GM/DL 4.5 GM/DL Imaging Last Impressions Brain MRI 10/13/16 0000 Signed Impressions: Service Date/Time: Thursday, October 13, 2016 17:29 - CONCLUSION: 1. No acute abnormality seen. 2. Age-related atrophy. 3. Suspected widespread demyelination likely secondary to small vessel ischemic change. Ernesto Gasca MD Head CT 10/09/16 0000 Signed Impressions: Service Date/Time: October 21:40 - CONCLUSION: 1. No acute findings. Chronic white matter ischemic changes. Daniel Rob MD Chest X-Ray 10/09/16 0000 Signed Impressions: Service Date/Time: October 20:10 - CONCLUSION: 1. Subsegmental airspace disease at the bases most characteristic of atelectasis. Film is rotated in position. Previous right shoulder replacement. Daniel Rob MD Objective Remarks General: NAD, Awake and alert Chest: CTA Cardiac: Regular Abd: +BS, soft ND/NT Ext: No edema A/P Problem List: (1) Altered mental status Status: Acute Plan: - May be multifactorial related to dehydration, acute on chronic renal insufficiency. Pt has clinically improved. - Pt has been afebrile since admission and no reported outpt fevers - WBC count was 18 at admission, now 12.5 (10/15/16) - Afebrile - stop Cefepime (10/10 - 10/13/16) - Blood cultures (10/10/16) --> NO growth at 4d - Urine culture ngtd - Stool neg for c.diff - MRI brain (10/13/16) --> Suspected widespread demyelination likely secondary to small vessel ischemic change - Cont prn Ativan and Haldol - Alvarez was replaced for urine retention, this can be removed as pt becomes more ambulatory at rehab - Cont supportive care - PT - IS - Add Glucerna with each meal - Replace Magnesium today - Anticipate discharge to rehab in next 1-2 days once electrolytes are stable - DVT prophylaxis (2) Renal failure Status: Acute Plan: - Resolved - See above. (3) Diabetes mellitus type 2, diet-controlled Status: Chronic Plan: - Pt is normally diet controlled. (4) HTN (hypertension) Status: Chronic Plan: - metoprolol Assessment and Plan Patient examined. Assessment and plan formulated with Graciela Walters PA-C. I agree with the above. Problem Qualifiers (1) Altered mental status: Qualified Code: R41.0 - Delirium (2) HTN (hypertension): Qualified Code: I10 - Essential hypertension Graciela Walters Oct 15, 2016 09:13 Santosh Araujo DO Oct 16, 2016 12:40
[2016-10-15 09:21] LABS: PLATELET ESTIMATE SMEAR NORMAL (NORMAL); PLATELET MORPHOLOGY NORMAL (NORMAL); SCAN/DIFF AUTO DIFF CONFIRMED
[2016-10-15] MEDS: CALCIUM CARBONATE 1.25 GM (CA 500 MG) TAB PO SCH ×2 (09:41→21:32)
[2016-10-15] MEDS: SODIUM CHLORIDE 0.9% FLUSH 5 ML FLUSH FLUSH SCH ×2 (09:41→21:00)
[2016-10-15] MEDS: METOPROLOL SUCCINATE 50 MG EXTENDED RELEASE TAB PO SCH (09:41)
[2016-10-15] MEDS: MAGNESIUM SULFATE 1 GM PREMIX 100 ML IV SCH ×2 (09:41→11:09)
[2016-10-15] MEDS: NYSTATIN SUSP 500,000 U/5 ML CUP SWISH-SWAL SCH ×4 (09:41→21:00)
[2016-10-15] MEDS: PANTOPRAZOLE SOD 20 MG DELAYED RELEASE TAB PO SCH (09:41)
[2016-10-15 11:00] VITALS: BP 127/60; PULSE 137; RESP 20; TEMP 95.5; O2SAT 97
[2016-10-15] MEDS: HEPARIN SODIUM - SQ 10,000 UNITS/ML VIAL SQ SCH (11:00)
[2016-10-15] MEDS: DEXTROSE 5% IN WATE 1000ML INJ 1,000 ML IV SCH (11:09)
[2016-10-15 16:21] VITALS: BP 140/58; PULSE 100; RESP 16; TEMP 95.9; O2SAT 98
[2016-10-15] MEDS: ACETAMINOPHEN/HYDROcodone 325 MG/10 MG TAB PO PRN (16:56)
[2016-10-15 17:10] LABS: BICARBONATE 20.5 MEQ/L (21.0-32.0); MAGNESIUM 1.8 MG/DL (1.5-2.5); POTASSIUM 4.3 MEQ/L (3.5-5.1)
[2016-10-15 18:09] LABS: CALCIUM-PROTEIN CORRECTED 8.4 MG/DL (8.5-10.1)
[2016-10-15 19:55] VITALS: BP 138/63; PULSE 102; RESP 20; TEMP 98; O2SAT 95
[2016-10-16] MEDS: DEXTROSE 5% IN WATE 1000ML INJ 1,000 ML IV SCH (00:16)
[2016-10-16] MEDS: HEPARIN SODIUM - SQ 10,000 UNITS/ML VIAL SQ SCH ×2 (00:16→11:37)
[2016-10-16 00:44] VITALS: BP 126/60; PULSE 91; RESP 20; TEMP 98.3; O2SAT 98
[2016-10-16 04:39] VITALS: BP_SYST 147; BP_SYST 175; BP_DIAS 64; BP_DIAS 74; PULSE 87; RESP 20; TEMP 97.6; O2SAT 95
[2016-10-16] MEDS: INSULIN ASPART SUPPLEMENTAL SCALE SQ SCH ×2 (06:10→11:00)
[2016-10-16 06:17] LABS: AUTOMATED NEUTROPHIL # 9.9 TH/MM3 (1.8-7.7); BASOPHIL % 0.2 % (0.0-2.0); EOSINOPHIL # 0.3 TH/MM3 (0-0.4); EOSINOPHIL % 1.9 % (0.0-4.0); HEMATOCRIT 25.6 % (35.0-46.0); LYMPH % 18.3 % (9.0-44.0); LYMPHOCYTE # 2.5 TH/MM3 (1.0-4.8); MEAN CELL VOLUME 86.2 FL (80.0-100.0); MEAN CORPUSCULAR HGB CONC 33.7 % (32.0-36.0); MONO % 6.6 % (0.0-8.0); PLATELET COUNT 169 TH/MM3 (150-450); RED BLOOD COUNT 2.97 MIL/MM3 (4.00-5.30); RED CELL DISTRIBUTION WIDTH 14.6 % (11.6-17.2); WHITE BLOOD COUNT 13.5 TH/MM3 (4.0-11.0)
[2016-10-16 06:22] LABS: HEMO FLAGS AUTO DIFF
[2016-10-16 07:07] LABS: BICARBONATE 20.2 MEQ/L (21.0-32.0); MAGNESIUM 1.5 MG/DL (1.5-2.5)
[2016-10-16 07:46] LABS: CALCIUM-PROTEIN CORRECTED 8.8 MG/DL (8.5-10.1)
[2016-10-16 07:55] LABS: BANDS 2 % (0-6); EOSINOPHILS 1 % (0-4); METAMYELOCYTES 1 % (0-1); NEUTROPHIL # MANUAL DIFF 11.6 TH/MM3 (1.8-7.7); PLATELET ESTIMATE SMEAR NORMAL (NORMAL); PLATELET MORPHOLOGY NORMAL (NORMAL); POLYS (SEG NEUTROPHILS) 83 % (16-70); SCAN/DIFF FINAL DIFF MANUAL; WBC DIFF SAMPLE 100
[2016-10-16 07:56] LABS: STOMATOCYTES 1+ (NORMAL)
[2016-10-16 08:00] VITALS: BP 125/56; PULSE 87; RESP 16; TEMP 97.9; O2SAT 97
[2016-10-16 08:03] VITALS: PULSE 93
[2016-10-16] MEDS: PANTOPRAZOLE SOD 20 MG DELAYED RELEASE TAB PO SCH (08:20)
[2016-10-16] MEDS: SODIUM CHLORIDE 0.9% FLUSH 5 ML FLUSH FLUSH SCH (08:20)
[2016-10-16] MEDS: CALCIUM CARBONATE 1.25 GM (CA 500 MG) TAB PO SCH (08:20)
[2016-10-16] MEDS: METOPROLOL SUCCINATE 50 MG EXTENDED RELEASE TAB PO SCH (08:20)
[2016-10-16] MEDS: NYSTATIN SUSP 500,000 U/5 ML CUP SWISH-SWAL SCH ×2 (08:20→13:00)
[2016-10-16 11:27] VITALS: BP 112/52; PULSE 85; RESP 16; TEMP 97.8; O2SAT 98
[2016-10-16] MEDS ORDERED: HYDR-3535 PO (12:33)
[2016-10-16] MEDS ORDERED: LORA-373 PO (12:33)
--- NOTE | 2016-10-16 12:39 | HHI.DS ---
Discharge Summary Admission Date Oct 09, 2016 at 22:06 Discharge Date: Oct 16, 2016 Admitting Diagnosis altered mental status, dehydration (1) Altered mental status Diagnosis: Principal (2) Renal failure Diagnosis: Principal (3) Diabetes mellitus type 2, diet-controlled Diagnosis: Secondary (4) HTN (hypertension) Diagnosis: Secondary Brief History HPI 76 year-old woman who presents to the emergency department brought in by her family. She is on hospice reportedly for "C. difficile "after she developed dehydration and required IV fluid hydration at home. Her family states however that she is not terminally ill and that they were told that she can use hospice for more resources at home. Family reports that in August she was really perfectly normal. She would walk independently, and do things on her own. She had fall and had operation to shoulder developed some kind of infection in her thumb with lymphangitis, received IV antibiotics, developed C. difficile. Since that time she's had trouble with nausea vomiting diarrhea and has had progressive decline in her functional status. At the beginning of this week, 5 days ago, they saw her primary physician for follow-up and placed her on hospice at that time. She's been getting IV fluids at home since then and was on medication for UTI Family reports that this morning and yesterday she was doing well, eating independently, and then later this morning when they came back she is been confused, unable to really speak, not moving, with worsening mental status. In er found to have sirs criteria with elevated heart rate and WBC count and urine infection with renal failure with cr at 3 unknown baseline . Patient appears to be atrial fib as well with ventricular response of 120, not sure if new or old. CBC/BMP: 10/16/16 0535 10/16/16 0535 Significant Findings Laboratory Tests Test 10/14/16 10/15/16 10/15/16 10/15/16 05:25 05:26 05:28 16:24 Red Blood Count 3.33 MIL/MM3 3.23 MIL/MM3 (4.00-5.30) (4.00-5.30) Hemoglobin 9.9 GM/DL 9.3 GM/DL (11.6-15.3) (11.6-15.3) Hematocrit 28.4 % 28.0 % (35.0-46.0) (35.0-46.0) Neutrophils (%) (Auto) 70.3 % 74.8 % (16.0-70.0) (16.0-70.0) Sodium Level 149 MEQ/L 149 MEQ/L (136-145) (136-145) Chloride Level 121 MEQ/L 120 MEQ/L 116 MEQ/L (98-107) (98-107) (98-107) Carbon Dioxide Level 20.3 MEQ/L 20.0 MEQ/L 20.5 MEQ/L (21.0-32.0) (21.0-32.0) (21.0-32.0) Estimat Glomerular Filtration 58 ML/MIN (>89) 70 ML/MIN (>89) 56 ML/MIN (>89) Rate Calcium Level 7.0 MG/DL 7.2 MG/DL 7.4 MG/DL (8.5-10.1) (8.5-10.1) (8.5-10.1) Protein Corrected Calcium 8.4 MG/DL 8.4 MG/DL (8.5-10.1) (8.5-10.1) Magnesium Level 1.4 MG/DL 1.1 MG/DL (1.5-2.5) (1.5-2.5) Total Protein 4.5 GM/DL 4.5 GM/DL 5.3 GM/DL (6.4-8.2) (6.4-8.2) (6.4-8.2) White Blood Count 12.5 TH/MM3 (4.0-11.0) Neutrophils # (Auto) 9.4 TH/MM3 (1.8-7.7) Random Glucose 66 MG/DL (74-106) Test 10/16/16 05:35 White Blood Count 13.5 TH/MM3 (4.0-11.0) Red Blood Count 2.97 MIL/MM3 (4.00-5.30) Hemoglobin 8.6 GM/DL (11.6-15.3) Hematocrit 25.6 % (35.0-46.0) Neutrophils (%) (Auto) 73.0 % (16.0-70.0) Neutrophils # (Auto) 9.9 TH/MM3 (1.8-7.7) Neutrophils % (Manual) 83 % (16-70) Neutrophils # (Manual) 11.6 TH/MM3 (1.8-7.7) Stomatocytes 1+ (NORMAL) Chloride Level 111 MEQ/L (98-107) Carbon Dioxide Level 20.2 MEQ/L (21.0-32.0) Estimat Glomerular Filtration 74 ML/MIN (>89) Rate Calcium Level 7.3 MG/DL (8.5-10.1) Total Protein 4.4 GM/DL (6.4-8.2) PE at Discharge General: NAD, Awake and alert Chest: CTA Cardiac: Regular Abd: +BS, soft ND/NT Ext: No edema Hospital Course (1) Altered mental status Status: Acute Plan: - multifactorial related to dehydration, acute on chronic renal insufficiency. Pt has clinically improved. - Pt has been afebrile since admission and no reported outpt fevers - WBC count was 18 at admission, now 13.5 (10/16/16) - Afebrile - Cefepime (10/10 - 10/13/16) - Blood cultures (10/10/16) --> NO growth at 5d - Urine culture --> NO growth - Stool neg for c.diff - MRI brain (10/13/16) --> Suspected widespread demyelination likely secondary to small vessel ischemic change - prn Ativan - Alvarez was replaced for urine retention, this can be removed as pt becomes more ambulatory at rehab - Cont supportive care - PT - IS - Add Glucerna with each meal - discharge to SNF, see orders (2) Renal failure Status: Acute Plan: - Resolved - See above. (3) Diabetes mellitus type 2, diet-controlled Status: Chronic Plan: - Pt is normally diet controlled. (4) HTN (hypertension) Status: Chronic Plan: - metoprolol Pt Condition on Discharge: Stable Discharge Disposition: Discharge to SNF Discharge Instructions DIET: Follow Instructions for: Heart Healthy Diet, Diabetic Diet Activities you can perform: Weight Bearing as [place] Follow up Referrals: PCP Follow-up - [address] Trini Villalpando Changed Medications: Lorazepam (Lorazepam) 0.5 Mg Tab 0.5 MG PO Q6HR PRN ANXIETY AND/OR AGITATION #30 Ref 0 TAB (Changed from: Q2HR) Continued Medications: Choline Fenofibrate (Fenofibric Acid ) 135 mg Capdr 135 MG PO DAILY #30 Ref 0 CAP Cyanocobalamin (B12) 1,000 Mcg Tab 500 PO DAILY Hydrocodone-Acetaminophen (Lortab) 10-325 Mg Tab 1 TAB PO Q6H PRN PAIN #30 Ref 0 TAB (This prescription has been renewed) Metoprolol Succinate ER 24 HR (Metoprolol Succinate ER 24 HR) 50 Mg Tab 50 MG PO DAILY #30 Ref 0 TAB Omeprazole (Omeprazole) 20 Mg Tab 20 MG PO DAILY #30 Ref 0 TAB Promethazine (Promethazine) 12.5 Mg Tab 25 MG PO Q6H PRN NAUSEA OR VOMITING Ref 0 TAB Discontinued Medications: Doxycycline Hyclate (Doxycycline Hyclate) 100 Mg Cap 100 MG PO BID Infection Ref 0 CAP Furosemide (Furosemide) 20 Mg Tab 20 MG PO DAILY #30 Ref 0 TAB Lisinopril (Lisinopril) 5 Mg Tab 5 MG PO DAILY Blood Pressure Management #30 Ref 0 TAB Metronidazole (Metronidazole) 500 Mg Tab 500 MG PO TID Infection Ref 0 TAB Santosh Araujo DO Oct 16, 2016 12:39
--- NOTE | 2016-10-16 12:41 | HHI.DCPOC ---
Discharge Care Plan Diagnosis: (1) Renal failure (2) Dehydration (3) UTI (urinary tract infection) (4) Altered mental status (5) Diabetes mellitus type 2, diet-controlled (6) HTN (hypertension) Goals to Promote Your Health * To prevent worsening of your condition and complications * To maintain your health at the optimal level Directions to Meet Your Goals Take your medications as prescribed Follow your dietary instruction Follow activity as directed Keep your appointments as scheduled Take your immunizations and boosters as scheduled If your symptoms worsen call your PCP, if no PCP go to Urgent Care Center or Emergency Room Smoking is Dangerous to Your Health. Avoid second hand smoke Call the 24-hour hour crisis hotline for domestic abuse at Santosh Araujo DO Oct 16, 2016 12:41
== END 2016-10-16 17:30 | DRG 683 ==
LOC: NEPC 20:39 → NEDA 22:06 → NEDH 10-10 02:06 → NEPGCP 10-10 03:47
PROVIDERS: ADMIT Hospitalist; ATTEND Hospitalist
PROC: 0T9B70Z Drainage of Bladder with Drainage Device, Via Natural or Artificial Opening (ICD-10-PCS; principal; 2016-10-13)
DX: N17.9 Acute kidney failure, unspecified (principal); E87.0 Hyperosmolality and hypernatremia; B37.0 Candidal stomatitis; E11.22 Type 2 diabetes mellitus with diabetic chronic kidney disease; E86.0 Dehydration; N39.0 Urinary tract infection, site not specified; I12.9 Hypertensive chronic kidney disease with stage 1 through stage 4 chronic kidney disease, or unspecified chronic kidney disease; E78.5 Hyperlipidemia, unspecified; F41.8 Other specified anxiety disorders; G89.29 Other chronic pain; I45.10 Unspecified right bundle-branch block; K21.9 Gastro-esophageal reflux disease without esophagitis; K44.9 Diaphragmatic hernia without obstruction or gangrene; N18.9 Chronic kidney disease, unspecified; R41.0 Disorientation, unspecified; M19.90 Unspecified osteoarthritis, unspecified site; M54.9 Dorsalgia, unspecified; Z88.5 Allergy status to narcotic agent; Z91.09 Other allergy status, other than to drugs and biological substances; R33.9 Retention of urine, unspecified
CPT/HCPCS: 70450; 70551; 71010; 80048; 80053; 81001; 82140; 82948; 83735; 84155; 85007; 85025; 85027; 87040; 87086; 87493; 93005; 94150; 96360; J0692; J1630; J1644; J2060; J3475; J3480; J7030; J7042; J7070